=== PATIENT | female | born 1965 | race Two or more races ===

== ENCOUNTER 2023-03-29 08:32 | Outpatient (CLI) | payer OTHER ==
[2023-03-29] MEDS ORDERED: IRBESARTAN-HCT1 EACH PO (15:33)
== END 2023-03-29 08:41 | disposition home or self-care (01) ==
LOC: RAD 08:32
PROVIDERS: ATTEND Urology
DX: N20.0 Calculus of kidney (principal)

== ENCOUNTER 2023-03-31 08:29 | Inpatient (IN) | payer OTHER ==
[~2023-03-31 08:29] MED LIST: IRBESARTAN-HCT1 EACH PO
[2023-04-01] MEDS ORDERED: PANTOPRAZOLE SO40 MG (14:15)
[2023-04-01] MEDS ORDERED: NAPROXEN500 MG (14:15)
== END 2023-04-02 11:19 | disposition home or self-care (01) | DRG 694 ==
LOC: CIR.AMB 08:29 → SURH 17:25 → O/R 17:25 → SURH 17:27
PROVIDERS: ADMIT Urology; ATTEND Urology
PROC: 0TC18ZZ Extirpation of Matter from Left Kidney, Via Natural or Artificial Opening Endoscopic (ICD-10-PCS; 2023-03-31)
PROC: 0TF48ZZ Fragmentation in Left Kidney Pelvis, Via Natural or Artificial Opening Endoscopic (ICD-10-PCS; 2023-03-31)
PROC: BT1FZZZ Fluoroscopy of Left Kidney, Ureter and Bladder (ICD-10-PCS; principal; 2023-03-31 07:00)
DX: N20.0 Calculus of kidney (principal); I10 Essential (primary) hypertension

== ENCOUNTER → 2023-04-08 07:52 | Outpatient (CLI) | payer OTHER | END | disposition home or self-care (01) | LOC: LAB 07:52 | PROVIDERS: ATTEND Urology | DX: D62 Acute posthemorrhagic anemia (principal) ==

== ENCOUNTER → 2023-04-08 | Outpatient (CLI) | payer OTHER ==
[~2023-04-08] MED LIST changes: +NAPROXEN500 MG; +PANTOPRAZOLE SO40 MG
== END | disposition home or self-care (01) ==
LOC: RAD 07:13
PROVIDERS: ATTEND Urology
DX: N20.0 Calculus of kidney (principal)